=== PATIENT | female | born 1960 | race Caucasian/White ===

== ENCOUNTER 2023-06-21 00:59 | Emergency (ER) | payer BC, MEDICAID ==
[~2023-06-21] VITALS: Ht 162.6 cm; Wt 82.0 kg
[2023-06-21 01:29] VITALS: O2SAT 97
[2023-06-21] MEDS ORDERED: LIDOCAINE HCL/PF 1% 10 MG/ML 5ML VIAL INFIL ONE (03:45)
[2023-06-21] MEDS ORDERED: BACITRACIN ZINC OINT UDPKT TOP ONE (03:45)
[2023-06-21 04:01] VITALS: TEMP 97.6
[2023-06-21] MEDS: ACETAMINOPHEN 325MG TABLET PO STA (04:01)
[2023-06-21] MEDS ORDERED: BO1 TP (05:14)
[2023-06-21] MEDS ORDERED: NAPR-681 PO (05:14)
[2023-06-21 05:28] VITALS: BP 130/74; PULSE 80; RESP 15
== END 2023-06-21 05:28 | disposition home or self-care (01) ==
LOC: ER 01:10
DX: S01.01XA Laceration without foreign body of scalp, initial encounter (principal); M25.562 Pain in left knee; M25.561 Pain in right knee; R51.9 Headache, unspecified; Z88.0 Allergy status to penicillin; W01.0XXA Fall on same level from slipping, tripping and stumbling without subsequent striking against object, initial encounter; Y93.89 Activity, other specified; Y92.89 Other specified places as the place of occurrence of the external cause; Y99.8 Other external cause status
CPT/HCPCS: 73080; 73562; 70450; 99284; Z7610 ×2